=== PATIENT | male | born 1990 | race African-American/Black ===

== ENCOUNTER 2017-06-04 12:08 | Emergency (ER) | payer MEDICAID ==
[~2017-06-04] VITALS: Ht 175.3 cm; Wt 65.0 kg
[2017-06-04] MEDS ORDERED: ALPRAZOLAM 0.5 MG TABLET PO ONE (15:45)
[2017-06-04 16:38] VITALS: BP 124/77
== END 2017-06-04 16:39 | disposition home or self-care (01) ==
LOC: ER 13:34
DX: F41.0 Panic disorder [episodic paroxysmal anxiety] (principal); J45.909 Unspecified asthma, uncomplicated; E78.00 Pure hypercholesterolemia, unspecified; F90.9 Attention-deficit hyperactivity disorder, unspecified type; F32.9 Major depressive disorder, single episode, unspecified
CPT/HCPCS: 36415; 71010; 84484; 93005; 99285; Z7610